=== PATIENT | male | born 1960 | race African-American/Black ===

== ENCOUNTER 2018-01-04 08:17 | Emergency (ER) | payer OTHER ==
[~2018-01-04] VITALS: Ht 167.6 cm; Wt 69.0 kg
[2018-01-04] MEDS ORDERED: FAMOTIDINE 20MG/2ML VIAL IV STA (08:45)
[2018-01-04] MEDS ORDERED: ONDANSETRON HCL 4MG/2ML VIAL IV STA (08:45)
[2018-01-04 09:16] LABS: BASOPHILS % 0.9 % (0.0-2.0); EOSINOPHILS % 0.3 % (0.0-5.0); HEMATOCRIT. 44.4 % (42.0-52.0); HEMOGLOBIN. 14.7 g/dL (14.0-18.0); LYMPHOCYTES % 34.2 % (20.0-50.0); MEAN CORPUSCULAR VOLUME 81.4 fL (80.0-94.0); MEAN PLATELET VOLUME 6.6 fl (7.4-10.4); MONOCYTES % 8.6 % (2.0-8.0); PLATELET 375 x1000/uL (130-400); RED BLOOD CELL COUNT 5.45 mill/uL (4.7-6.1); RED CELL DISTRIBUTION WIDTH 14.2 % (11.6-14.6)
[2018-01-04 09:24] LABS: CLARITY URINE CLEAR (CLEAR); COLOR URINE DARK YELLOW (YELLOW); KETONES URINE 2+ (NEGATIVE); LEUKOCYTE ESTERASE URINE NEGATIVE (NEGATIVE); NITRITE URINE NEGATIVE (NEGATIVE); OCCULT BLOOD URINE TRACE (NEGATIVE); PROTEIN URINE 1+ (NEGATIVE); SPECIFIC GRAVITY URINE 1.038 (1.005-1.030)
[2018-01-04 09:32] LABS: CHLORIDE 105 mEq/L (98-107)
[2018-01-04] MEDS ORDERED: MAGNESIUM/ALUMINUM HYDROXIDE/SIMETHICONE 30ML UDC PO ONE (12:00)
[2018-01-04 13:52] VITALS: BP 142/88
== END 2018-01-04 13:52 | disposition home or self-care (01) ==
LOC: ER 08:53
DX: R10.30 Lower abdominal pain, unspecified (principal); R19.09 Other intra-abdominal and pelvic swelling, mass and lump; R11.0 Nausea; F17.200 Nicotine dependence, unspecified, uncomplicated; R94.31 Abnormal electrocardiogram [ECG] [EKG]
CPT/HCPCS: 36415; 74176; 80053; 81003; 83690; 85025; 93005; 96374; 96375; 99285; J2405; J3490; J7030; Z7610

== ENCOUNTER 2020-09-09 12:28 | Inpatient (IN) | payer OTHER ==
[2020-09-09] VITALS (9 sets, daily range): BP systolic 107–152; BP diastolic 80–125
[~2020-09-09] VITALS: Ht 170.2 cm; Wt 77.6 kg
[~2020-09-09 12:28] MED LIST: HEPARIN SODIUM 1,000 UNIT/1ML VIAL IV ONE; NICARDIPINE 100MCG/ML 10ML VIAL (CATH LAB) IV ONE; PHENYLEPHRINE 100MCG/ML 10ML VIAL (CATH LAB) IV ONE
[2020-09-09] MEDS ORDERED: ASPIRIN 325MG TABLET PO ONE (13:00)
[2020-09-09] MEDS ORDERED: NITROGLYCERIN 0.4MG TABLET SL SL ONE (13:00)
[2020-09-09 13:31] LABS: BASOPHILS % 1.1 % (0.0-2.0); EOSINOPHILS % 0.3 % (0.0-5.0); HEMATOCRIT. 45.8 % (42.0-52.0); HEMOGLOBIN. 14.9 g/dL (14.0-18.0); LYMPHOCYTES % 33.3 % (20.0-50.0); MEAN CORPUSCULAR HEMOGLOBIN 26.8 pg (28.0-32.0); MEAN CORPUSCULAR VOLUME 82.4 fL (80.0-94.0); MEAN PLATELET VOLUME 6.9 fl (7.4-10.4); MONOCYTES % 6.7 % (2.0-8.0); NEUTROPHILS % 58.6 % (40.0-76.0); PLATELET 332 x1000/uL (130-400); RED BLOOD CELL COUNT 5.56 mill/uL (4.7-6.1); RED CELL DISTRIBUTION WIDTH 14.9 % (11.6-14.6)
[2020-09-09 13:35] LABS: CHLORIDE 109 mEq/L (98-107)
[2020-09-09] MEDS ORDERED: MORPHINE SULFATE 4 MG/ML CPJ (NOT FOR IM USE) IV ONE (14:45)
[2020-09-09] MEDS ORDERED: MORPHINE SULFATE 4 MG/ML CPJ (NOT FOR IM USE) IV NR (15:15)
[2020-09-09] MEDS ORDERED: IODIXANOL 320MG/ML 100 ML BOTTLE IV ONE (16:45)
[2020-09-09] MEDS ORDERED: FENTANYL CITRATE/PF 50MCG/ML 5ML VIAL ONE (16:45)
[2020-09-09] MEDS ORDERED: MIDAZOLAM HCL 5 MG/5 ML VIAL ONE (16:45)
[2020-09-09] MEDS ORDERED: IODIXANOL 320MG/ML 200ML BOTTLE ONE (16:46)
[2020-09-09] MEDS ORDERED: LIDOCAINE HCL 1% 20ML VIAL (Pyxis) INJ ONE (16:46)
[2020-09-09] MEDS ORDERED: VERAPAMIL HCL 2.5 MG/1 ML 2ML VIAL IV ONE (17:05)
[2020-09-09] MEDS ORDERED: ONDANSETRON HCL 4MG/2ML INJ ONE (17:07)
[2020-09-09] MEDS ORDERED: IOHEXOL-300 100 ML BOTTLE ONE (17:29)
[2020-09-09] MEDS ORDERED: DOPAMINE 400MG/250ML PREMIX 250 ML IV ONE (17:49)
[2020-09-09] MEDS ORDERED: CLONIDINE 0.1MG TABLET PO PRN (18:30)
[2020-09-09] MEDS ORDERED: DOCUSATE SODIUM 100MG CAPSULE PO PRN (18:30)
[2020-09-09] MEDS ORDERED: ACETAMINOPHEN 325MG TABLET PO PRN (18:30)
[2020-09-09] MEDS ORDERED: FENTANYL CITRATE/PF 50MCG/ML 2ML VIAL ONE (19:00)
[2020-09-09] MEDS ORDERED: CLOPIDOGREL 75MG TABLET ONE (19:00)
[2020-09-09] MEDS ORDERED: MIDAZOLAM HCL 2 MG/2 ML VIAL ONE (19:01)
[2020-09-09] MEDS ORDERED: FUROSEMIDE 40MG/4ML VIAL ONE (19:17)
[2020-09-09] MEDS ORDERED: ATROPINE SULFATE 1MG/10ML SYR IV PRN (19:30)
[2020-09-09] MEDS ORDERED: ATORVASTATIN CALCIUM 40MG TABLET PO SCH (21:00)
[2020-09-09] MEDS: PANTOPRAZOLE 40MG DR TABLET PO SCH (21:09)
[2020-09-09] MEDS: ONDANSETRON HCL 4MG/2ML INJ IV PRN (21:09)
[2020-09-09] MEDS: HYDROCODONE/ACETAMINOPHEN 5/325MG TABLET PO PRN (22:59)
[2020-09-10] VITALS (24 sets, daily range): BP systolic 96–131; BP diastolic 45–100
[2020-09-10] MEDS: HYDROCODONE/ACETAMINOPHEN 5/325MG TABLET PO PRN ×2 (04:24→09:05)
[2020-09-10] MEDS: ONDANSETRON HCL 4MG/2ML INJ IV PRN ×2 (04:24→09:06)
[2020-09-10] MEDS ORDERED: OMEP40CA12 MT (05:59)
[2020-09-10 06:10] LABS: BASOPHILS % 0.2 % (0.0-2.0); CHLORIDE 107 mEq/L (98-107); HEMATOCRIT. 44.1 % (42.0-52.0); HEMOGLOBIN. 14.2 g/dL (14.0-18.0); LYMPHOCYTES % 12.8 % (20.0-50.0); MEAN CORPUSCULAR HEMOGLOBIN 26.2 pg (28.0-32.0); MEAN CORPUSCULAR VOLUME 81.4 fL (80.0-94.0); MEAN PLATELET VOLUME 7.1 fl (7.4-10.4); MONOCYTES % 7.7 % (2.0-8.0); NEUTROPHILS % 79.3 % (40.0-76.0); PLATELET 325 x1000/uL (130-400); RED BLOOD CELL COUNT 5.42 mill/uL (4.7-6.1); RED CELL DISTRIBUTION WIDTH 14.6 % (11.6-14.6)
[2020-09-10] MEDS: ASPIRIN 81MG EC TABLET PO SCH (07:54)
[2020-09-10] MEDS: PANTOPRAZOLE 40MG DR TABLET PO SCH ×2 (07:54→20:39)
[2020-09-10] MEDS: CLOPIDOGREL 75MG TABLET PO SCH (07:55)
[2020-09-10] MEDS ORDERED: METOPROLOL TARTRATE 25MG TABLET PO SCH (09:00)
[2020-09-10] MEDS: FUROSEMIDE 40MG/4ML VIAL IVP SCH ×2 (09:06→18:30)
[2020-09-11] VITALS (9 sets, daily range): BP systolic 89–112; BP diastolic 41–97
[2020-09-11] MEDS: FUROSEMIDE 40MG/4ML VIAL IVP SCH (05:40)
[2020-09-11] MEDS: CLOPIDOGREL 75MG TABLET PO SCH (08:33)
[2020-09-11] MEDS: PANTOPRAZOLE 40MG DR TABLET PO SCH (08:33)
[2020-09-11] MEDS: ASPIRIN 81MG EC TABLET PO SCH (08:33)
== END 2020-09-11 16:44 | disposition home or self-care (01) | DRG 246 ==
LOC: ER 12:28 → CVICU 14:43 → 5EST 09-10 12:22
PROVIDERS: ADMIT Hospitalist; ATTEND Hospitalist
PROC: 027034Z Dilation of Coronary Artery, One Artery with Drug-eluting Intraluminal Device, Percutaneous Approach (ICD-10-PCS; principal; 2020-09-09)
PROC: 4A023N7 Measurement of Cardiac Sampling and Pressure, Left Heart, Percutaneous Approach (ICD-10-PCS; 2020-09-09)
PROC: B211YZZ Fluoroscopy of Multiple Coronary Arteries using Other Contrast (ICD-10-PCS; 2020-09-09)
DX: I21.09 ST elevation (STEMI) myocardial infarction involving other coronary artery of anterior wall (principal); I50.23 Acute on chronic systolic (congestive) heart failure; D72.829 Elevated white blood cell count, unspecified; E78.5 Hyperlipidemia, unspecified; F17.210 Nicotine dependence, cigarettes, uncomplicated; Z20.822 Contact with and (suspected) exposure to COVID-19; I11.0 Hypertensive heart disease with heart failure; I20.9 Angina pectoris, unspecified; Z60.2 Problems related to living alone; R74.01 Elevation of levels of liver transaminase levels; K21.9 Gastro-esophageal reflux disease without esophagitis; Z87.11 Personal history of peptic ulcer disease; Z71.6 Tobacco abuse counseling
CPT/HCPCS: 36415; 71045; 80048; 80053; 80061; 83036; 83880; 84484; 85025; 87426; 92928; 93005; 93306; 93458; 97162; 99291; C1725; C1769; C1874; C1887; C1893; C1894; J1265; J1644; J1940; J2250; J2270; J2370; J2405; J3010; J3490; J7070; Q9967